=== PATIENT | male | born 1950 | race Caucasian/White ===

== ENCOUNTER 2017-06-08 12:33 | Emergency (ER) | payer MEDICARE ==
[2017-06-08] MEDS ORDERED: Diphtheria,Pertussis(Acell),Tetanus Vaccine 0.5 ML Syringe IM ONE (12:41)
[2017-06-08] MEDS ORDERED: Bacitracin/Neomycin/Polymyxin B Oint 0.9 GM U/D Packet TOP ONE (12:41)
--- NOTE | 2017-06-08 12:56 | EDM.PDOC ---
ED HPI GENERAL MEDICAL PROBLEM - General Chief Complaint: Laceration Stated Complaint: "I cut my finger" Time Seen by Provider: 06/08/17 12:45 Source of Information: Reports: Patient History Limitations: Reports: No Limitations - History of Present Illness INITIAL COMMENTS - FREE TEXT/NARRATIVE: Patient presents to ER for lacerated right pinkie finger. He states was moving and broke a lamp that subsequently lacerated his right finger. He applied pressure and noted 1 cm laceration flap type on the tip of pinkie finger, and presents to ER for treatment. He is not up to date on his immunizations. Onset: Today Onset Date: 06/08/17 Onset Time: 11:30 Location: Reports: Upper Extremity, Right Quality: Reports: Sharp Severity: Mild Improves with: Reports: Other (Pressure) Worsens with: Reports: Movement Context: Reports: Trauma Associated Symptoms: Reports: No Other Symptoms Right 5-Little finger Pain Score (Numeric/FACES): 1 ED ROS GENERAL - Review of Systems Review Of Systems: See Below Constitutional: Reports: No Symptoms HEENT: Reports: No Symptoms Respiratory: Reports: No Symptoms Cardiovascular: Reports: No Symptoms Endocrine: Reports: No Symptoms GI/Abdominal: Reports: No Symptoms : Reports: No Symptoms Musculoskeletal: Reports: No Symptoms Skin: Reports: Other (1 cm simple flap laceration) Neurological: Reports: No Symptoms Psychiatric: Reports: No Symptoms Hematologic/Lymphatic: Reports: No Symptoms Immunologic: Reports: No Symptoms ED EXAM, SKIN/RASH Exam: See Below Exam Limited By: No Limitations General Appearance: Alert, WD/WN, No Apparent Distress Eye Exam: Bilateral Eye: PERRL Ears: Normal External Exam, Normal Canal, Hearing Grossly Normal, Normal TMs Nose: Normal Inspection, Normal Mucosa, No Blood Throat/Mouth: Normal Inspection, Normal Lips, Normal Teeth, Normal Gums, Normal Oropharynx, Normal Voice, No Airway Compromise Head: Atraumatic, Normocephalic Neck: Normal Inspection, Supple, Non-Tender, Full Range of Motion Respiratory/Chest: No Respiratory Distress, Lungs Clear, Normal Breath Sounds, No Accessory Muscle Use, Chest Non-Tender Cardiovascular: Normal Peripheral Pulses, Regular Rate, Rhythm, No Edema, No Gallop, No JVD, No Murmur, No Rub Peripheral Pulses: 2+: Radial (L), Radial (R) GI/Abdominal: Normal Bowel Sounds, Soft, Non-Tender, No Organomegaly, No Distention, No Abnormal Bruit, No Mass (Male) Exam: No Hernia, Normal Inspection, Normal Prostate, Circumcised Rectal (Males) Exam: Normal Exam, Normal Rectal Tone, Prostate Normal Back Exam: Normal Inspection, Full Range of Motion, NT Extremities: Normal Inspection, Normal Range of Motion, Non-Tender, No Pedal Edema, Normal Capillary Refill Neurological: Alert, Oriented, CN II-XII Intact, Normal Cognition, Normal Gait, Normal Reflexes, No Motor/Sensory Deficits Psychiatric: Normal Affect, Normal Mood Skin: Warm, Dry, Normal Color, Other (1 cm simple flap laceration on tip of pinkie finger) Location, Skin: Upper Extremity, Right Characteristics: Other (simple laceration) Associated features: Tenderness Lymphatic: No Adenopathy ED SKIN PROCEDURES - Laceration/Wound Repair Right Finger Lac/Wound length In cm: 1 (simple) Appearance: Superficial Distal NVT: Neuro & Vascular Intact, No Tendon Injury Anesthetic Type: Other Saline Irrigation (cc's): 75 Exploration/Debridement/Repair: Wound Explored Closed with: Dermabond Sterile Dressing Applied: Provider Tetanus Status Addressed: Other (TDap given) Complications: No - Splinting Right 5th Digit Splint Site: Finger splint Pre-Procedure NV Status: Normal Post-Procedure NV Status: Normal Splint Material: Metal Applied & Form Fitted By: Provider Provider Post-Splint Application NV Check: NV Status Normal, Good Position Complications: No Course - Orders/Labs/Meds Orders: Active Orders 24 hr Category Date Time Status Vaccines to be Administered [RC] PER UNIT ROUTINE Care 06/08/17 12:42 Ordered Meds: Medications Discontinued Medications Generic Name Dose Route Start Last Admin Trade Name Freq PRN Reason Stop Dose Admin Diphtheria/Tetanus/Acell Pertussis 0.5 ml 06/08/17 12:41 Adacel IM 06/08/17 12:42 .ONCE ONE Neomycin/Polymyxin/Bacitracin 1 each 06/08/17 12:41 Triple Antibiotic Oint TOP 06/08/17 12:42 ONETIME ONE Departure - Departure Time of Disposition: 13:00 Disposition: Home, Self-Care 01 Condition: Good Clinical Impression: Broken skin - Discharge Information Instructions: Laceration Care, Adult, [id number], Pain Medicine Instructions , [id number], Stitches, Lala, or Adhesive Wound Closure, [id number] MLP Sign Off - Signature Requirements MLP Sign Off: No - Problem List & Annotations (1) Laceration of right little finger SNOMED Code(s): 673474218, 959402383 Code(s): S61.216A - LAC W/O FB OF R LITTLE FINGER W/O DAMAGE TO NAIL, INIT Status: Acute Qualifiers: Encounter type: initial encounter Damage to nail status: without damage Foreign body presence: without foreign body Qualified Code(s): S61.216A - Laceration without foreign body of right little finger without damage to nail, initial encounter - Problem List Review Problem List Initiated/Reviewed/Updated: Yes - My Orders Last 24 Hours: My Active Orders 06/08/17 12:42 Vaccines to be Administered [RC] PER UNIT ROUTINE - Assessment/Plan Last 24 Hours: My Active Orders 06/08/17 12:42 Vaccines to be Administered [RC] PER UNIT ROUTINE Assessment:: Simple flap laceration of right little finger Dermabond and splint application Immunization Due Plan: Discharged to home.. Prevent further injury. Daily dressing change Splint removal after 5 days. F/U prn
[2017-06-08] MEDS ORDERED: Lidocaine 2% 100 MG/5 ML Syringe ONE (13:59)
[2017-06-08] MEDS ORDERED: Lidocaine 2% 20 ML MDV ONE (14:00)
--- NOTE | 2017-06-10 14:57 | EDM.PDOC ---
ED HPI GENERAL MEDICAL PROBLEM - General Chief Complaint: Laceration Stated Complaint: "I cut my finger" Time Seen by Provider: 06/08/17 12:45 Source of Information: Reports: Patient History Limitations: Reports: No Limitations - History of Present Illness INITIAL COMMENTS - FREE TEXT/NARRATIVE: Patient presents to ER for lacerated right pinkie finger. He states was moving and broke a lamp that subsequently lacerated his right finger. He applied pressure and noted 1 cm laceration flap type on the tip of pinkie finger, and presents to ER for treatment. He is not up to date on his immunizations. Onset: Today Onset Date: 06/08/17 Onset Time: 11:30 Location: Reports: Upper Extremity, Right Quality: Reports: Sharp Severity: Mild Improves with: Reports: Other (Pressure) Worsens with: Reports: Movement Context: Reports: Trauma Associated Symptoms: Reports: No Other Symptoms Right 5-Little finger Pain Score (Numeric/FACES): 1 - Related Data Allergies Allergy/AdvReac Type Severity Reaction Status Date / Time No Known Allergies Allergy Verified 06/08/17 17:03 Home Meds: Home Meds Aspirin [Adult Low Dose Aspirin EC] 81 mg PO DAILY 06/08/17 [History] Cholecalciferol (Vitamin D3) [D-2000] 1,000 unit PO DAILY 06/08/17 [History] Cyanocobalamin (Vitamin B-12) [B-12] 1,000 mcg PO DAILY 06/08/17 [History] Furosemide 40 mg PO PRN 06/08/17 [History] Losartan Potassium 50 mg PO DAILY 06/08/17 [History] Metoprolol Tartrate [Lopressor] 50 mg PO BID 06/08/17 [History] Potassium Chloride 20 meq PO PRN 06/08/17 [History] atorvaSTATin Calcium [Atorvastatin Calcium] 80 mg PO DAILY 06/08/17 [History] Past Medical History HEENT History: Reports: Impaired Vision Cardiovascular History: Reports: Bypass, Cardiomyopathy, High Cholesterol, Hypertension Respiratory History: Reports: COPD Gastrointestinal History: Reports: None Genitourinary History: Reports: None - Past Surgical History Musculoskeletal Surgical History: Reports: Arthroscopic Knee, Hip Replacement Social & Family History - Family History Family Medical History: Noncontributory - Tobacco Use Smoking Status *Q: Never Smoker Second Hand Smoke Exposure: No - Caffeine Use Caffeine Use: Reports: Coffee - Alcohol Use Alcohol Use History: No - Recreational Drug Use Recreational Drug Use: No - Living Situation & Occupation Living situation: Reports: , with Spouse Occupation: Disabled ED ROS GENERAL - Review of Systems Review Of Systems: See Below Constitutional: Reports: No Symptoms HEENT: Reports: No Symptoms Respiratory: Reports: No Symptoms Cardiovascular: Reports: No Symptoms Endocrine: Reports: No Symptoms GI/Abdominal: Reports: No Symptoms : Reports: No Symptoms Musculoskeletal: Reports: No Symptoms Skin: Reports: Other (1 cm simple flat laceration of finger tip. ) Neurological: Reports: No Symptoms Psychiatric: Reports: No Symptoms Hematologic/Lymphatic: Reports: No Symptoms Immunologic: Reports: No Symptoms ED EXAM, SKIN/RASH Exam: See Below Exam Limited By: No Limitations General Appearance: Alert, WD/WN, No Apparent Distress Eye Exam: Bilateral Eye: EOMI, PERRL Ears: Normal External Exam, Normal Canal, Hearing Grossly Normal, Normal TMs Nose: Normal Inspection, Normal Mucosa, No Blood Throat/Mouth: Normal Inspection, Normal Lips, Normal Teeth, Normal Gums, Normal Oropharynx, Normal Voice, No Airway Compromise Head: Atraumatic, Normocephalic Neck: Normal Inspection, Supple, Non-Tender, Full Range of Motion Respiratory/Chest: No Respiratory Distress, Lungs Clear, Normal Breath Sounds, No Accessory Muscle Use, Chest Non-Tender Cardiovascular: Normal Peripheral Pulses, Regular Rate, Rhythm, No Edema, No Gallop, No JVD, No Murmur, No Rub GI/Abdominal: Normal Bowel Sounds, Soft, Non-Tender, No Organomegaly, No Distention, No Abnormal Bruit, No Mass (Male) Exam: No Hernia, Normal Inspection, Normal Prostate, Circumcised Rectal (Males) Exam: Normal Exam, Normal Rectal Tone, Prostate Normal Back Exam: Normal Inspection, Full Range of Motion, NT Extremities: Normal Inspection, Normal Range of Motion, Non-Tender, No Pedal Edema, Normal Capillary Refill Neurological: Alert, Oriented, CN II-XII Intact, Normal Cognition, Normal Gait, Normal Reflexes, No Motor/Sensory Deficits Psychiatric: Normal Affect, Normal Mood Skin: Warm, Dry, Wound/Incision (1 cm simple laceration on tip of finger) Location, Skin: Upper Extremity, Right Associated features: Swelling Lymphatic: No Adenopathy ED SKIN PROCEDURES - Laceration/Wound Repair Right Finger Lac/Wound length In cm: 1 Distal NVT: Neuro & Vascular Intact, No Tendon Injury Skin Prep: Providone-Iodine (Betadine) Saline Irrigation (cc's): 25 Closed with: Dermabond Drain Placement: No Sterile Dressing Applied: Provider Tetanus Status Addressed: Yes Complications: No Course - Orders/Labs/Meds Meds: Medications Discontinued Medications Generic Name Dose Route Start Last Admin Trade Name Audrey PRN Reason Stop Dose Admin Diphtheria/Tetanus/Acell Pertussis 0.5 ml 06/08/17 12:41 06/08/17 12:53 Adacel IM 06/08/17 12:42 0.5 ml .ONCE ONE Administration Lidocaine HCl Confirm 06/08/17 13:59 Xylocaine 2% Administered 06/08/17 14:00 Dose 100 mg .ROUTE .STK-MED ONE Lidocaine HCl Confirm 06/08/17 14:00 Xylocaine 2% Administered 06/08/17 14:01 Dose 20 ml .ROUTE .STK-MED ONE Neomycin/Polymyxin/Bacitracin 1 each 06/08/17 12:41 06/08/17 12:45 Triple Antibiotic Oint TOP 06/08/17 12:42 1 each ONETIME ONE Administration Departure - Departure Time of Disposition: 14:59 Disposition: Home, Self-Care 01 Condition: Good Clinical Impression: Broken skin - Discharge Information Instructions: Laceration Care, Adult, Vxhf-[id number], Pain Medicine Instructions , [id number], Stitches, Lala, or Adhesive Wound Closure, [id number]-Ysvr Referrals: PCP,Unobtain [Ordering Only Provider] - Forms: ED Department Discharge - Problem List & Annotations (1) Laceration of right little finger SNOMED Code(s): 348192819, [id number] Code(s): S61.216A - LAC W/O FB OF R LITTLE FINGER W/O DAMAGE TO NAIL, INIT Status: Acute Qualifiers: Encounter type: initial encounter Damage to nail status: without damage Foreign body presence: without foreign body Qualified Code(s): S61.216A - Laceration without foreign body of right little finger without damage to nail, initial encounter
== END 2017-06-08 13:15 | disposition home or self-care (01) ==
LOC: CC.ED 12:33
DX: S61.216A Laceration without foreign body of right little finger without damage to nail, initial encounter (principal); I10 Essential (primary) hypertension; J44.9 Chronic obstructive pulmonary disease, unspecified; Z23 Encounter for immunization; Z79.82 Long term (current) use of aspirin; Z79.899 Other long term (current) drug therapy; E78.00 Pure hypercholesterolemia, unspecified; W25.XXXA Contact with sharp glass, initial encounter
CPT/HCPCS: 12001; 90715; 96372; 99282

== ENCOUNTER → 2017-12-20 | Day surgery (SDC) | payer MEDICARE ==
[~2017-12-20] MED LIST: Lactated Ringers 1,000 ML IV SCH; Propofol 200 MG/20 ML SDV IV ONE
--- NOTE | 2017-12-20 14:33 | OR ---
DATE OF OPERATION: 12/20/2017 PREOPERATIVE DIAGNOSIS: GASTROESOPHAGEAL REFLUX DISEASE. POSTOPERATIVE DIAGNOSIS: GASTROESOPHAGEAL REFLUX DISEASE. SURGEON: Vishal Castano MD PROCEDURE: EGD WITH BIOPSIES X2, MCECA. ANESTHESIA: [facility] with MAC due to chronic GERD and potentially difficult airway. COMPLICATIONS: None. SPECIMEN: 1. Antral biopsy x2. 2. MECCA. FINDINGS: 1. Full-length EGD. 2. Chronic antral gastritis without erosion or ulceration. 3. Small hiatal hernia with nonobstructing Schatzki ring. RECOMMENDATIONS: Medical followup with Dr. Kemp. INDICATIONS: The patient was in for a physical. He has been having some occasional issues with reflux and nausea. Dr. Kemp sent him for EGD. DESCRIPTION OF PROCEDURE: The patient was prepped and draped, placed in the left lateral decubitus position. A lubricated Olympus gastroscope was advanced to the cricopharyngeus area, and easily intubated into the esophagus. The esophageal lining was benign in its entire course. The Z-line was crisp and sharp around 38 cm. There was a small nonobstructing Schatzki ring, starting in the distal esophagus. No distal esophagitis, stricturing, ulceration, or Calvillo's changes were seen. There is a small hiatal hernia present with some spontaneous reflux. The scope was easily intubated into the stomach through the pylorus and in to the second portion of duodenum. This and the duodenal bulb were unremarkable. The scope was brought back into the stomach and retroflexed. The upper fundus and cardia were benign. Upon straightening, the rest of the fundus was unremarkable. There were some nonspecific and chronic indolent gastritis present of the antrum. Biopsy x2 were taken along with a MECCA test. No other polyps, lesions, or signs of peptic ulcer disease were seen. Air was suctioned, scope was removed without complication. BERTO/SOLO /[id number]
== END ==
LOC: CC.SDS 08:56
PROVIDERS: ATTEND Family Medicine
DX: K21.9 Gastro-esophageal reflux disease without esophagitis (principal); K29.50 Unspecified chronic gastritis without bleeding; K22.2 Esophageal obstruction; I25.10 Atherosclerotic heart disease of native coronary artery without angina pectoris; I10 Essential (primary) hypertension; G47.33 Obstructive sleep apnea (adult) (pediatric); F32.9 Major depressive disorder, single episode, unspecified; E55.9 Vitamin D deficiency, unspecified; E78.5 Hyperlipidemia, unspecified; R05 Cough; N40.1 Benign prostatic hyperplasia with lower urinary tract symptoms; R35.1 Nocturia; M81.0 Age-related osteoporosis without current pathological fracture; Z95.1 Presence of aortocoronary bypass graft; Z79.899 Other long term (current) drug therapy
CPT/HCPCS: 00731; 43239; 87081; 88305; J2704; J7120

== ENCOUNTER → 2019-11-20 | Day surgery (SDC) | payer MEDICARE ==
[~2019-11-20] MED LIST changes: -Lactated Ringers 1,000 ML IV SCH
[2019-11-20] MEDS: Lactated Ringers 1,000 ML IV SCH (07:43)
--- NOTE | 2019-11-20 15:22 | OR ---
DATE OF OPERATION: 11/20/2019 PREOPERATIVE DIAGNOSIS: BRIGHT RED BLOOD PER RECTUM. POSTOPERATIVE DIAGNOSIS: BRIGHT RED BLOOD PER RECTUM. SURGEON: Vishal Castano MD PROCEDURE: FULL-LENGTH COLONOSCOPY WITH FORCEPS POLYP REMOVAL X3, BIOPSY X1. ANESTHESIA: MAC. COMPLICATIONS: None. SPECIMEN: 1. Three small tubular adenomas in the cecum. 2. Focal area of colitis, splenic flexure. FINDINGS: 1. Full-length colonoscopy. 2. Tubular adenomas x3. 3. Focal colitis, splenic flexure, mild at best. 4. Mild sigmoid diverticulosis. 5. Internal hemorrhoids. RECOMMENDATIONS: Recommend followup colonoscopy in 3 years due to his polyps. Follow up in the clinic in 2 weeks to discuss pathology and the patient's bleeding. INDICATIONS: The patient presented to my office for bright red blood with bowel movement. He had a colonoscopy 2 years ago at a different facility. We elected to proceed with diagnostic colonoscopy. DESCRIPTION OF PROCEDURE: The patient was prepped and draped, placed in the left lateral decubitus position. A lubricated Olympus colonoscope was inserted and with ease advanced to the cecum. Direct visualization of the ileocecal valve and appendiceal orifice was accomplished. The bowel prep was excellent. Upon withdrawal, the patient had 2 small stalked polyps in the cecal pouch itself and 1 right on the backside of it, all were removed with forceps in their entirety without problem. The rest of the ascending and transverse colon were benign. Right around the splenic flexure, the patient had a little small focal area of colitis, it did not appear ischemic or significant. We did do a biopsy of it. The rest of the descending colon was benign. The patient had a few scattered diverticula in the sigmoid colon, but otherwise unremarkable. No inflammatory changes. No signs of any other polyps, mass, ulceration, or bleeding sites. The rectal vault was benign. Retroflexion showed significant perianal hemorrhoid disease with 1 large non-thrombosed hemorrhoid present. Air was then suctioned and the colonoscope removed without complication. BERTO/SOLO /[id number]
== END ==
LOC: CC.SDS 07:31
PROVIDERS: ATTEND Family Medicine
DX: D12.0 Benign neoplasm of cecum (principal); K52.9 Noninfective gastroenteritis and colitis, unspecified; K64.8 Other hemorrhoids; K57.31 Diverticulosis of large intestine without perforation or abscess with bleeding; K64.4 Residual hemorrhoidal skin tags; N40.1 Benign prostatic hyperplasia with lower urinary tract symptoms; R35.1 Nocturia; K21.9 Gastro-esophageal reflux disease without esophagitis; E78.5 Hyperlipidemia, unspecified; I10 Essential (primary) hypertension; Z79.899 Other long term (current) drug therapy; Z79.82 Long term (current) use of aspirin; Z98.890 Other specified postprocedural states; Z77.22 Contact with and (suspected) exposure to environmental tobacco smoke (acute) (chronic)
CPT/HCPCS: 00811; 45380; J2704; J7120

== ENCOUNTER → 2023-03-22 | Day surgery (SDC) | payer MEDICARE ==
[~2023-03-22] MED LIST changes: +Ketamine 200 MG/20 ML MDV ONE; -Propofol 200 MG/20 ML SDV IV ONE; +Propofol 200 MG/20 ML SDV ONE; +fentaNYL 50 MCG/ML SDV ONE
[2023-03-22] MEDS: Lactated Ringers 1,000 ML IV SCH (10:08)
== END ==
LOC: CC.SDS 09:50
PROVIDERS: ATTEND Family Medicine
DX: Z12.11 Encounter for screening for malignant neoplasm of colon (principal); D12.0 Benign neoplasm of cecum; D12.5 Benign neoplasm of sigmoid colon; K57.30 Diverticulosis of large intestine without perforation or abscess without bleeding; I10 Essential (primary) hypertension; E78.5 Hyperlipidemia, unspecified; K21.9 Gastro-esophageal reflux disease without esophagitis; N40.1 Benign prostatic hyperplasia with lower urinary tract symptoms; R35.1 Nocturia; I25.10 Atherosclerotic heart disease of native coronary artery without angina pectoris; M85.80 Other specified disorders of bone density and structure, unspecified site; Z86.010 Personal history of colon polyps; Z79.899 Other long term (current) drug therapy; Z98.890 Other specified postprocedural states
CPT/HCPCS: 00811; 88305; 99100; J2704; J3010; J3490; J7120

== ENCOUNTER 2024-08-16 17:16 | Emergency (ER) | payer MEDICARE ==
[2024-08-16] MEDS ORDERED: Sodium Chloride 0.9% 10 ML Syringe FLUSH PRN (17:32)
[2024-08-16] MEDS: Sodium Chloride 0.9% 1,000 ML IV ONE (17:35)
[2024-08-16 17:39] LABS: BASOPHILS ABSOLUTE AUTO 0.01 10^3/uL (0.00-0.50); BASOPHILS PERCENT AUTO 0.1 % (0-1); EOSINOPHILS ABSOLUTE AUTO 0.04 10^3/uL (0.00-1.50); EOSINOPHILS PERCENT AUTO 0.3 % (0-6); HEMATOCRIT 35.4 % (42.0-52.0); HEMOGLOBIN 11.9 g/dL (14.0-18.0); IMMATURE GRAN ABSOLUTE AUTO 0.07 10^3/uL (0.00-0.49); IMMATURE GRAN PERCENT AUTO 0.6 % (0.0-4.9); LYMPHOCYTES ABSOLUTE AUTO 1.11 10^3/uL (0.60-5.00); LYMPHOCYTES PERCENT AUTO 9.4 % (24-44); MEAN CORPUSCULAR HEMOGLOBIN 32.6 pg (27.0-32.0); MEAN CORPUSCULAR HGB CONC 33.6 g/dL (32.0-36.0); MONOCYTES ABSOLUTE AUTO 1.45 10^3/uL (0.00-1.50); MONOCYTES PERCENT AUTO 12.3 % (0-10); NEUTROPHILS ABSOLUTE AUTO 9.13 x10^3/uL (1.80-8.00); NEUTROPHILS PERCENT AUTO 77.3 % (41-71); PLATELET COUNT,PLT 273 10^3/uL (150-400); RED BLOOD CELL COUNT 3.65 x10^6/uL (4.50-6.00); WHITE BLOOD CELL COUNT,WBC 11.8 10^3/uL (4.0-11.0)
[2024-08-16 17:55] LABS: ALBUMIN 2.8 g/dL (3.4-5.0); BILIRUBIN TOTAL 0.8 mg/dL (0.0-1.0); C-REACTIVE PROTEIN 6.53 mg/dL (<=0.50); CALCIUM 8.5 mg/dL (8.4-10.1); EST CRCL DRUG DOSING (CG) 7.98 mL/min; MAGNESIUM 2.2 mg/dL (1.8-2.4); PROTEIN TOTAL,TP 7.1 g/dL (6.4-8.2)
[2024-08-16 17:57] LABS: POTASSIUM,K 6.8 mEq/L (3.5-5.0)
[2024-08-16] MEDS ORDERED: Glucagon,Human Recombinant 1 MG Vial IM PRN (18:01)
[2024-08-16 18:06] LABS: BILIRUBIN,URINE NEGATIVE (NEGATIVE); COLOR,URINE YELLOW (YELLOW); GLUCOSE,URINE NEGATIVE (NEGATIVE); KETONES,URINE NEGATIVE (NEGATIVE); LEUKOCYTE ESTERASE,URINE NEGATIVE (NEGATIVE); NITRITE,URINE NEGATIVE (NEGATIVE); OCCULT BLOOD,URINE LARGE (NEGATIVE); PH,URINE 5.5 (4.5-8.0); PROTEIN,URINE 100 mg/dL (NEGATIVE); UROBILINOGEN,URINE 0.2 EU/dL (0.2-1.0)
[2024-08-16 18:16] LABS: APPEARANCE,URINE SLIGHTLY CLOUDY (CLEAR)
[2024-08-16 18:17] LABS: RBC,URINE 0-5 /HPF (0-5); SQUAMOUS EPITHELIAL CELLS,UR OCCASIONAL /HPF (NOT SEEN); WBC,URINE 0-5 /HPF (0-5)
[2024-08-16 18:18] LABS: BACTERIA,URINE FEW /HPF (NOT SEEN)
[2024-08-16] MEDS: Calcium Gluconate 10% 1 GM/10 ML SDV IVPUSH ONE (18:21)
[2024-08-16] MEDS: Insulin Regular, Human 100 Units/ML 10 ML Vial IVPUSH ONE (18:21)
[2024-08-16] MEDS: Sodium Zirconium Cyclosilicate 10 GM Packet PO STA (18:21)
[2024-08-16] MEDS: 50% Dextrose in Water 50 ML Syringe IVPUSH STA (18:22)
[2024-08-16] MEDS ORDERED: Sodium Chloride 0.9% 1,000 ML IV SCH (19:15)
[2024-08-16] MEDS: Sodium Bicarbonate 8.4% 50 MEQ/50 ML Syringe IVPUSH ONE (19:28)
[2024-08-16] MEDS: Sodium Chloride 0.45% 1,000 ML IV SCH (19:29)
[2024-08-16] MEDS: Ondansetron 4 MG/2 ML SDV IVPUSH STA (19:50)
== END 2024-08-16 20:07 ==
LOC: CC.ED 17:16
DX: K85.90 Acute pancreatitis without necrosis or infection, unspecified (principal); K72.00 Acute and subacute hepatic failure without coma; N17.9 Acute kidney failure, unspecified; R53.1 Weakness; R79.89 Other specified abnormal findings of blood chemistry; E87.5 Hyperkalemia; E86.0 Dehydration; I10 Essential (primary) hypertension; J44.9 Chronic obstructive pulmonary disease, unspecified; E78.00 Pure hypercholesterolemia, unspecified; Z79.899 Other long term (current) drug therapy
CPT/HCPCS: 36415; 51702; 71045; 74176; 80053; 81001; 82550; 83605; 83690; 83735; 83880; 84484; 85025; 86140; 87428-QW; 93005; 96361; 96374; 96375; 99285-25; A9270-GY; J0612; J2405; J3490; J7030